=== PATIENT | male | born 1975 | race Caucasian/White ===

== ENCOUNTER 2021-05-17 13:00 | Emergency (ER) | payer SELFPAY ==
--- NOTE | ~2021-05-17 | XR_ITS ---
EXAMINATION: XR finger 5th LT min 2V DATE: 05/17/2021 16:35 INDICATION: Left hand fifth digit injury and pain. Potential splinters. TECHNIQUE: 3 views of left hand fifth digit were obtained. COMPARISON: None. FINDINGS: Bone alignment is normal. No fracture. 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 There is soft tissue swelling of the fifth digit. Irregularity of the skin suggests a laceration. IMPRESSION: 1. No fracture or radiopaque foreign body. Note that wood is not radiopaque. Reviewed, dictated and finalized at location A. [employer]
[2021-05-17 13:46] VITALS: BP 149/86; PULSE 94; RESP 20; TEMP 36.7; O2SAT 98
--- NOTE | 2021-05-17 17:16 | ED.UPPEXIN ---
HPI - Extremity Injury (Upper) General Chief Complaint: Extremity Injury, Upper Stated Complaint: hand injury Time Seen by Provider: 05/17/21 17:16 Source: patient Mode of arrival: ambulatory Limitations: no limitations History of Present Illness HPI narrative: 46-year-old with no major medical problems here with complaints of last patient to his left fifth finger sustained few hours ago while cutting wood. States that he she cutter accidentally cut himself. He denies any other injuries. complaint: injury to: left and finger (Fifth finger) Onset (ago): hour(s) (5) Other injuries: none Handedness: right Place: work Severity: moderate Relieving factors: none Exacerbating factors: none Context: laceration Associated symptoms: denies other symptoms Review of Systems Review of Systems: All systems reviewed & are unremarkable except as noted in HPI and below Constitutional: Constitutional: Reports no additional constitutional complaints Eyes: Eyes: Reports no additional eye complaints ENT: Reports system reviewed and no additional complaints, except as documented Cardiovascular: Cardiovascular: Reports no additional cardiovascular complaints Respiratory: Respiratory: Reports no additional respiratory complaints Gastrointestinal: Gastrointestinal: Reports no additional gastrointestinal complaints Musculoskeletal: Musculoskeletal: Reports as per HPI Exam Narrative: GENERAL: Well-appearing, well-nourished, and in no acute distress. HEAD: Normocephalic, atraumatic. EYES: PERRLA and EOMI.. NECK: Supple. CHEST: Clear to auscultation. No respiratory distress. HEART: Regular rate and rhythm. No murmur heard. Normal peripheral pulses. EXTREMITIES: Normal range of motion. No edema. V-shaped laceration with irregular borders noted on the left fifth PIP with active bleeding. Neurologically intact no tendon injury SKIN: Warm, dry, no rash. NEURO: No focal deficits. Alert and oriented x3. PSYCH: Normal mood and affect. Course Vital Signs Vital signs: Vital Signs Temperature 36.7 C 05/17/21 13:46 Pulse Rate 94 05/17/21 13:46 Respiratory Rate 05/17/21 13:46 Blood Pressure 149/86 H 05/17/21 13:46 Pulse Oximetry 98 05/17/21 13:46 Temperature 36.7 C 05/17/21 13:46 Pulse Rate 94 05/17/21 13:46 Respiratory Rate 20 05/17/21 13:46 Blood Pressure 149/86 H 05/17/21 13:46 Pulse Oximetry 98 05/17/21 13:46 Procedures Laceration Laceration 1: Date: 05/17/21 Time: 17:18 Site: hand (Left fifth finger) Side (If applicable): left Size (cm): 4 Description: flap Depth: simple, single layer Local Anesthetic: lidocaine 1% ====== Skin Level ====== Skin layer closed with: nylon Size (cm): 4-0 Number of sutures: 10 Technique: running ====== Subcutaneous Layer ====== ====== Muscle Layer ====== ====== Tendon Layer ====== Discharge Plan Discharge Clinical Impression: Laceration of finger of left hand Qualifiers: Encounter type: initial encounter Finger: little finger Damage to nail status: without damage Foreign body presence: without foreign body Qualified Code(s): S61.217A - Laceration without foreign body of left little finger without damage to nail, initial encounter Patient Disposition: Home, Self-Care Condition: Stable Instructions: Antibiotic Form, Care For Your Stitches (ED), Laceration (ED) Additional Instructions: Sutures off 7 to 10 days , if infection follow with your doctor or return to ER , Take Tylenol or Ibuprofen for pain Prescriptions: New cephalexin 500 mg capsule 500 mg PO Q8H 7 Days Qty: 21 RF: 0 Follow-up/Referrals: PHYSICIAN NOT ON STAFF,NONSTAFF [Primary Care Provider] - Bassam Clemente MD [Physician] - Time of Disposition: :22
[2021-05-17] MEDS: TETANUS,DIPHTHERIA,AC PERTUSSIS ADULT (0.5 ML) BOOSTRIX IM (17:30)
== END 2021-05-17 17:41 | disposition home or self-care (01) ==
PROVIDERS: Emergency Provider Family Medicine
DX: S61.217A Laceration without foreign body of left little finger without damage to nail, initial encounter (principal); W27.8XXA Contact with other nonpowered hand tool, initial encounter
CPT/HCPCS: 12002; 73140; 90715; 99283